=== PATIENT | female | born 1995 | race Two or more races ===

== ENCOUNTER 2024-02-27 09:12 | Emergency (ER) | payer BC, MEDICAID ==
[~2024-02-27] VITALS: Ht 167.6 cm; Wt 106.5 kg
[2024-02-27 09:32] VITALS: BP 147/96; PULSE 105; RESP 18; TEMP 97.3; O2SAT 95
[2024-02-27] MEDS ORDERED: CEPH500C PO (09:58)
[2024-02-27] MEDS ORDERED: PROM1SOL4 PO (09:58)
== END 2024-02-27 10:02 | disposition home or self-care (01) ==
LOC: ER 09:12
DX: J20.9 Acute bronchitis, unspecified (principal)
CPT/HCPCS: 71045

== ENCOUNTER 2024-07-20 07:38 | Emergency (ER) | payer BC, MEDICAID ==
[~2024-07-20] VITALS: Ht 167.6 cm; Wt 109.7 kg
[~2024-07-20 07:38] MED LIST: CEPH500C PO; PROM1SOL4 PO
[2024-07-20 08:10] VITALS: BP 133/84; PULSE 77; RESP 16; TEMP 98.2; O2SAT 98
--- NOTE | 2024-07-20 08:36 | ED.PDOC ---
Eye-HPI HPI Comments 28 year old presents for tooth pain location to the right lower quadrant that radiates to the jaw Onset: 2 days ago and sudden Last dental apt: 1 year ago Tried IBU 200 mg w/ no improvement Denies fevers chills Denies inability to eat and drink Chief Complaint: Tooth Pain Time Seen by MD: 07:48 Primary Care Provider: NONE Reviewed Notes: Nurses Notes, Medications, Allergies Allergies: Coded Allergies: NO KNOWN ALLERGIES (Unverified , 07/20/24) Home Meds Active Scripts Promethazine-Dm (Promethazine Dm 6.25-15 mg/5Ml) 1 Millie Millie, 5 ML PO TID, #180 ML Prov:RONNI MORRIS 02/27/24 Cephalexin Monohydrate (Cephalexin) 500 Mg Cap, 1 CAP PO QID, #28 CAP Prov:RONNI MORRIS 02/27/24 Information Source: Patient Mode of Arrival: Ambulatory Past Medical History PAST MEDICAL HISTORY: Denies Surgical History: Denies all surgeries WHEEL TUNER History: No Pertinent WHEEL TUNER History Family History Family History: Reviewed,noncontributory to illness Social History Smoker: Non-Smoker Alcohol: Denies ETOH Use Drugs: Denies Drug Use Lives In: Home All Other Systems: Reviewed and Negative (Per HPI) Physical Exam General Appearance: No Apparent Distress, Normal HEENT: Normal ENT Inspection, Pharynx Normal, TMs Normal, Other (Tooth normal. Gingivitis.) Neck: Full Range of Motion, Non-Tender, Normal, Normal Inspection Respiratory: Chest Non-Tender, Lungs Clear, No Accessory Muscle Use, No Respiratory Distress, Normal Breath Sounds Cardiovascular: No Edema, No JVD, No Murmur, No Gallop, Normal Peripheral Pulses, Regular Rate/Rhythm Breast Exam: Deferred Gastrointestinal: No Organomegaly, Non Tender, No Pulsatile Mass, Normal Bowel Sounds, Soft Genitalia: Deferred Pelvic: Deferred Rectal: Deferred Extremities: No calf tenderness, Normal capillary refill, Normal inspection, Normal range of motion, Non-tender, No pedal edema Musculoskeletal : Apperance: Normal Neurologic: Alert, tanker driver II-XII nml as Tested, No Motor Deficits, Normal Affect, Normal Mood, No Sensory Deficits Cerebellar Function: Normal Reflexes: Normal Skin: Dry, Normal Color, Warm Lymphatic: No Adenopathy Was a procedure done? Was a procedure done?: No EENT DIFF Eye: Other X-Ray, Labs, Meds, VS Vital Signs Date Time Temp Pulse Resp B/P (MAP) Pulse Ox O2 Delivery O2 Flow Rate FiO2 07/20/24 08:10 98.2 77 16 133/84 (100) 98 98.2 07/20/24 08:10 77 16 98 Room Air 07/20/24 07:42 98.4 75 16 143/99 (114) 99 Current Medications Medications (Trade) Dose Ordered Sig/Clarence Route Start Time Stop Time Status Last Admin Benzocaine (Hurricaine [place]) 1 spr ONCE ONCE MT 07/20/24 08:45 07/20/24 08:51 DC 07/20/24 09:05 X-Ray, Labs, Meds, VS Comment Pleasant 28-year-old female presents with a chief complaint of acute toothache. After review of systems and physical examination no red flags. Patient nontoxic non ill-appearing. Based on show decision-making patient agreed to empiric treatment and reports she will follow up with the end of the provided with a 24 hours return precautions discussed Time of 1ST Reevaluation: 10:00 Reevaluation 1ST: Improved Patient Education/Counseling: Diagnosis, Treatment Family Education/Counseling: Diagnosis, Treatment Departure 1 Departure Time of Disposition: 10:01 Impression: Primary Impression: Tooth pain Disposition: HOME / SELF CARE / HOMELESS Condition: Stable e-Prescriptions Hydrocodone-Acetaminophen (Hydrocodone Bitartrate/AC 5-325 mg) 1 Tab Tab 1 TAB PO Q6HP PRN for 5 Days, #20 TAB 0 Refills Prov: BAY SOLIS NP 07/20/24 Discharged With: Self Critical Care Note Critical Care Time?: No Stability Stability form required: No Heart Score Heart Score: Heart Score Response (Comments) Value History N/A 0 EKG N/A 0 Age N/A 0 Risk Factors N/A 0 Troponin N/A 0 Total 0 BAY SOLIS NP Jul 20, 2024 08:36
[2024-07-20] MEDS: BENZOCAINE (DENTAL) 20 % SPRAY 60ML MT ONE (09:05)
[2024-07-20] MEDS ORDERED: HYDR-4902 PO (10:02)
[2024-07-20] MEDS ORDERED: ACE3T PO (12:10)
== END 2024-07-20 10:13 | disposition home or self-care (01) ==
LOC: ER 07:38
DX: K08.89 Other specified disorders of teeth and supporting structures (principal); Z79.899 Other long term (current) drug therapy